=== PATIENT | male | born 1950 | race Caucasian/White ===

== ENCOUNTER 2018-03-27 10:39 | Inpatient (IN) | payer OTHER ==
[~2018-03-27] VITALS: Ht 175.3 cm; Wt 90.3 kg
[2018-04-17] VITALS (13 sets, daily range): BP systolic 99–153; BP diastolic 52–90; PULSE 77–92; TEMP 97.5–98.8
[2018-04-17 06:35] LABS: HEMATOCRIT 42.1 % (42.0-52.0); HEMOGLOBIN 14.2 g/dl (13.5-18.0)
[2018-04-18 03:50] VITALS: BP 117/69; PULSE 65; TEMP 97.8
[2018-04-18 07:03] LABS: BASO % 0.2 % (0.0-2.0); GRAN # 9.2 (1.4-6.5); GRAN % 82.4 % (42.2-75.2); LYMPH # 1.1 (1.2-3.4); LYMPH % 9.5 % (20.0-51.0); MEAN CELL VOLUME 90 fl (80.0-100.0); MEAN CORPUSCULAR HGB CONC 32 g/dl (33.0-37.0); MEAN PLATELET VOLUME 9.9 fl (7.4-10.4); MONO # 0.8 (0.1-0.6); MONO % 7.4 % (1.7-9.3); PLATELET COUNT 142 K/mm3 (130-400); RED BLOOD COUNT 3.86 M/mm3 (4.20-5.60); REDCELL DISTRIBUTION WIDTH-CV 13.5 % (11.5-14.5)
[2018-04-18 07:15] LABS: HEMATOCRIT 34.6 % (42.0-52.0); HEMOGLOBIN 11.2 g/dl (13.5-18.0); MEAN CORPUSCULAR HEMOGLOBIN 29 pg (27.0-31.0)
[2018-04-18 07:28] LABS: CALCIUM 7.9 mg/dL (8.4-10.2); CREATININE, serum 0.99 mg/dL (0.66-1.25); POTASSIUM 4.3 mmol/L (3.4-5.0)
[2018-04-18 07:48] VITALS: BP 125/74; PULSE 70; TEMP 97.8
[2018-04-18 12:12] VITALS: BP 127/66; PULSE 79; TEMP 97.9
[2018-04-18 16:14] VITALS: BP 134/83; PULSE 79; TEMP 99
[2018-04-18 19:16] VITALS: BP 126/69; PULSE 69; TEMP 98.4
[2018-04-18 23:49] VITALS: BP 114/70; PULSE 67; TEMP 98
[2018-04-19 04:47] VITALS: BP 127/77; PULSE 68; TEMP 98.3
[2018-04-19 08:09] VITALS: BP 129/73; PULSE 69; TEMP 98.1
[2018-04-19 11:03] VITALS: BP 123/68; PULSE 68; TEMP 97.6
[2018-04-19 16:30] VITALS: BP 138/78; PULSE 72; TEMP 99.1
[2018-04-19 18:50] VITALS: BP 139/78; PULSE 70; TEMP 98
[2018-04-19 23:44] VITALS: BP 138/81; PULSE 77; TEMP 98.4
[2018-04-20 04:41] VITALS: BP 143/79; PULSE 75; TEMP 98.2
[2018-04-20 07:55] VITALS: BP 146/79; PULSE 70; TEMP 98.2
== END 2018-04-20 11:06 | disposition home or self-care (01) | DRG 708 ==
LOC: INPTSU 04-17 05:21 → SURG 04-17 07:30
PROVIDERS: Nurse Anesthetist, Certified Registered; Urology
PROC: 0T7D8ZZ Dilation of Urethra, Via Natural or Artificial Opening Endoscopic (ICD-10-PCS; 2018-04-17)
PROC: 0VT00ZZ Resection of Prostate, Open Approach (ICD-10-PCS; principal; 2018-04-17 07:30)
PROC: 07TC0ZZ Resection of Pelvis Lymphatic, Open Approach (ICD-10-PCS; 2018-04-17 07:30)
DX: C61 Malignant neoplasm of prostate (principal); N35.9 Urethral stricture, unspecified
CPT/HCPCS: A9284; C1769; J0690; J1100; J1885; J2250; J2405; J2704; J2710; J3010; J3480; J7120